=== PATIENT | male | born 1945 | race Caucasian/White ===

== ENCOUNTER 2021-10-03 07:16 | Inpatient (IN) ==
[2021-10-03 08:04] LABS: Basophils # (auto) 0.02 K/uL (0-0.2); Basophils % (auto) 0.1 %; Hematocrit (blood only) 39.6 % (42-52); Hemoglobin 13.6 g/dL (14.0-18.0); Immature Granulocytes # (auto) 0.27 K/uL (0.00-0.02); Immature Granulocytes % (auto) 1.7 %; Lymphocytes # (auto) 1.35 K/uL (1.2-3.4); Lymphocytes % (auto) 8.7 %; Mean Corpuscular Hemoglobin 30.6 pg (25-34); Mean Corpuscular Hgb Conc 34.3 g/dL (32-36); Mean Corpuscular Volume 89.2 fL (80-100); Mean Platelet Volume 11.2 fL (7.4-10.4); Monocytes % (auto) 3.2 %; Neutrophils # (auto) 13.33 K/uL (1.4-6.5); Neutrophils % (auto) 86.3 %; Platelet Count 163 K/uL (130-400); RDW Coefficient of Variation 15.8 % (11.5-14.5); RDW Standard Deviation 51.6 fL (36.4-46.3); Red Blood Count 4.44 M/uL (4.7-6.1); White Blood Count 15.47 K/uL (4.8-10.8)
--- NOTE | 2021-10-03 08:13 | XRay Report ---
XR chest 1V portable HISTORY: 76 years-old Male SEPSIS acute sepsis. Recurrent fall. COMPARISON: Head CT 02/23/2021, chest radiographs 04/18/2018 TECHNIQUE: Portable AP view of the chest FINDINGS: Extensive sclerotic metastatic disease is redemonstrated. No definite acute pathologic fracture ident ified. The cardiomediastinal and hilar silhouettes are within normal limits. Emphysema. No pneumothor ax, pleural effusion, airspace consolidation or overt pulmonary edema. IMPRESSION: 1. Emphysema without acute process. 2. Extensive osteoblastic skeletal metastasis redemonstrated. ACT 112: Negative or not required by law. The above report was generated using voice recognition software. It may contain grammatical, syntax o r spelling errors. Electronically signed by: Mike Issa M.D. 10/03/2021 8:11 AM
[2021-10-03 08:20] LABS: Appearance Urine Clear (Clear); Bacteria Urine Automated Negative (Negative); Bilirubin Urine Negative (Negative); Blood Urine 2+ (Negative); Color Urine Yellow; Epithelial Cell Urine Auto 20-30 /lpf (0-5); Glucose Urine UA Negative (Negative); Ketones Urine Negative (Negative); Leukocyte Esterase Urine Negative (Negative); Nitrite Urine Negative (Negative); Protein Urine 1+ (Negative); Specific Gravity Urine 1.014 (1.000-1.030); Urobilinogen Urine Negative (Negative)
[2021-10-03 08:22] LABS: INR 1.3 (0.9-1.1); Partial Thromboplastin Ratio 0.9; Partial Thromboplastin Time 23.5 Seconds (21.0-31.0); Prothrombin Time 13.2 Seconds (9.0-12.0)
[2021-10-03 09:03] LABS: Alanine Aminotransferase 26 U/L (7-52); Albumin Globulin Ratio 1.4 (0.9-2); Albumin Level 4.3 gm/dl (3.4-5.0); Alkaline Phosphatase 371 U/L (34-104); Anion Gap 12 (3-11); Aspartate Aminotransferase 74 U/L (13-39); BUN Creatinine Ratio 20.4 (10-20); Bilirubin,Total 2.6 mg/dl (0.2-1.0); Blood Urea Nitrogen 49 mg/dl (6-23); Calcium > 18.0 mg/dl (8.5-10.1); Carbon Dioxide 31 mmol/L (21-32); Chloride 98 mmol/L (98-107); Creatinine Clr Calc Pharmacy 26.2 ml/min; Est GFR (African American) 28.9 ml/min; Est GFR (Non-African American) 24.9 ml/min; Glucose 111 mg/dl (70-99(Fasting)); Magnesium 2.1 mg/dl (1.7-2.4); Potassium 3.3 mmol/L (3.5-5.1); Sodium 141 mmol/L (136-145); Total Protein 7.3 gm/dl (6.0-8.3); Troponin I High Sensitivity 65.8 pg/ml (0-20)
[2021-10-03] MEDS ORDERED: SODIUM CHLORIDE 0.9% 1000ML 1,000 ML IV ONE (09:10)
--- NOTE | 2021-10-03 09:51 | CT Scan Report ---
CT head/brain wo con CLINICAL HISTORY: 76 years-old Male with recurrent falls ams. Acutely altered mental status with co nfusion TECHNIQUE: Multiple axial CT images of the head were obtained without contrast. A dose lowering tech nique was utilized adhering to the principles of ALARA. COMPARISON: CT cervical spine of same day. FINDINGS: No acute intracranial hemorrhage, midline shift, intracranial mass, hydrocephalus, territorial ischem ia or abnormal extra-axial collection. Age-related changes. White matter hypodensities suggest chroni c microvascular ischemic disease. The study is motion degraded. Chronic appearing infarcts of the rig ht deal radiata and caudate nucleus. Extensive osteoblastic metastatic disease. No acute calvarial fracture. The paranasal sinuses, masto id air cells, and middle ear cavities are clear. IMPRESSION: 1. No acute intracranial abnormality. 2. Extensive osteoblastic skeletal metastasis. ACT 112: Negative or not required by law. The above report was generated using voice recognition software. It may contain grammatical, syntax o r spelling errors. Electronically signed by: Miek Issa M.D. 10/03/2021 9:49 AM
--- NOTE | 2021-10-03 09:55 | CT Scan Report ---
CT cervical spine wo con CLINICAL HISTORY: 76 years-old Male with recurrent falls ams. Acute neck pain status post fall COMPARISON: CT head of same day, PET CT 02/23/2021 TECHNIQUE: Multiple axial CT images of the cervical spine were obtained without contrast. A dose low ering technique was utilized adhering to the principles of ALARA. FINDINGS: Diffuse osteoblastic skeletal metastasis redemonstrated. Mild to moderate multilevel disc s pace narrowing with moderate spondylitic spurring and mild to moderate facet arthrosis. Moderate C1-C 2 degeneration. No acute fracture, subluxation or endplate erosion. Multilevel neural foraminal narro wing. Levoscoliosis. The cervical soft tissues appear unremarkable. The visualized lung apices appear clear. IMPRESSION: 1. No acute cervical spine fracture or subluxation. 2. Extensive osteoblastic skeletal metastasis redemonstrated. ACT 112: Negative or not required by law. The above report was generated using voice recognition software. It may contain grammatical, syntax o r spelling errors. Electronically signed by: Mike Issa M.D. 10/03/2021 9:52 AM
--- NOTE | 2021-10-03 10:06 | CT Scan Report ---
ABDOMEN AND PELVIS CT WITHOUT CONTRAST CT DOSE: 2196.52 mGy.cm HISTORY: Acute abdominal trauma with prior fall recurrent falls ams TECHNIQUE: Multiaxial CT images of the abdomen and pelvis were performed without contrast. A dose lo wering technique was utilized adhering to the principles of ALARA. COMPARISON STUDY: CT abdomen and pelvis 03/31/2018, PET CT 02/23/2021 FINDINGS: Mild left basilar atelectasis. Limited exam secondary to respiratory motion and upper extremity posit ioning. No pneumatosis or pneumoperitoneum. Coronary artery calcifications are noted along with cardi omegaly and trace pericardial effusion. The unenhanced spleen, moderately atrophic pancreas, gallblad jenn, adrenal glands and liver appear unremarkable. No hydronephrosis. 1.4 cm right-sided ureterocele versus urinary bladder diverticulum. Small fat filled left inguinal hernia. Atherosclerosis of the ao rta without aneurysm. There is no lymphadenopathy identified. Nonspecific mild distal esophageal wall thickening. No bowel obstruction or bowel wall thickening. Ga seous distention of the rectum. Colonic diverticulosis without acute diverticulitis. Moderate fecal r etention. Normal appendix. Unremarkable soft tissues. Extensive multifocal osteoblastic skeletal meta stasis. Lumbar levoscoliosis. No acute pathologic fracture identified. IMPRESSION: 1. No bowel obstruction or bowel wall thickening. Normal appendix. 2. Colonic diverticulosis without acute diverticulitis. 3. Extensive osteoblastic skeletal metastasis. No acute pathologic fracture identified. ACT 112: Negative or not required by law. The above report was generated using voice recognition software. It may contain grammatical, syntax o r spelling errors. Electronically signed by: Mike Issa M.D. 10/03/2021 10:04 AM
[2021-10-03 11:01] LABS: Influenza A virus by PCR Negative (Neg); Influenza B virus by PCR Negative (Neg); RSV by PCR Negative (Neg); SARS CoV2 RNA(COVID-19) InHosp NEGATIVE (Negative)
[2021-10-03] MEDS: SODIUM CHLORIDE 0.9% 1000ML 1,000 ML IV SCH ×2 (11:47→22:30)
[2021-10-03] MEDS ORDERED: CALCITONIN SALMON 400 UNITS/2 ML SQ SCH (12:00)
--- NOTE | 2021-10-03 12:02 | History & Physical Report ---
Date of Service October 03, 2021 Assessment & Plan (1) Hypercalcemia: Plan: Severe hypercalcemia likely secondary to metastatic disease complicated by hypovolemia associated with encephalopathy/confusion/weakness/loss of appetite - Ionized calcium pending - which should guide overall therapy- iCA-2.01 - Will treat with Calcitonin 4units/kg SQ q12 bridge until bisphosphonate effect takes place - ZDA or equivalent bisphosphonate- Renal dosed ZDA 3mg - IVF at 125 ml/hour- HCO3 31- continue with 0.9% Saline infusion - consider changing to Plasmalyte if acidosis/worsening renal function - Phos level now- 5.0 follow likely related to suppression of PTH from other montrell rce - ALkPO4 elevated with bony mets noted - PTH/PTH RP - As this is acute expect PTH to not be elevated- but await PTHRP - Would like to obtain further imaging with Contrast to evaluate for any new m asses- however SANE RN elevated at this time (2) Encephalopathy: Plan: Currently likely related to severe hypercalcemia - CT of the head- 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 - 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- remains compared to PET scan 2020 - Treat Hypercalcemia- Hematology consulted for underlying cancer management and prognostication - Answers words with one word answers, but is able to move all extremities, and reflexes slow but present, no facial droop PERRLA -check brain MRI without contrast (due to RADHA) (3) RADHA (acute kidney injury): Plan: FREDERICK III baseline 1.2-1.5- SANE RN 2.4 with BUN 49- CRCL <30 - replace intravascular volume as above - Hold ARB - avoid further nephrotoxins as able - however further contrasted studies may benefit disease extension/new masses - If renal function does not improve with hydration consider renal ultrasound (4) Elevated troponin: Plan: elevated at 65/69, no chest pain but is difficult to obtain history ECG with TWIs anterior leads changed from previous trend troponin likely myocardial demand ischemia in setting of acute illness but if troponin increases further would obtain ECHO (5) 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 - PSA and urine cytology requested -consult Oncology to see if needs any treatment inpatient given aggressive progressing disease (6) Leukocytosis: Plan: WBC 15 neutrophil predominant- without fevers, UA without bacteria, CXR clear TBili and AST, alk phos elevated but no abd pain-check RUQ US - PCT -.21 - Hold on abx a this time likely component of some hemoconcentration (7) Elevated LFTs: Plan: TBili up to 2.6, AST elevated in the 70s, Alk phos elevated likely due to bony mets Liver and GB appear normal on CT abd/pel without contrast no abd pain or tenderness on exam but is confused and difficult to get good history -check RUQ US -follow LFTs (8) Hypokalemia: Plan: mildly low will not replace given RADHA (9) HTN (hypertension): Plan: Hold ARB (10) HLD (hyperlipidemia): Plan: Continue statin Plan: DVT porph-heparin SQ DIspo-admit to PCU DNR/DNI History of Present Illness Chief Complaint: weakness, confusion Primary Care Provider: Emeterio Cedeno 76 YOM with medical history of: Prostate Cancer (follows with [facility])- on current therapy, CKD, HTN, HLD, back pain with bony metastatic disease. Patient comes to the EMD today for 2 day history of increased weakness, confusion, and decrease in oral intake. Patient is accompanied by his and daughter. They report normally he is pretty well functioning at home, but has had decrease over the past 2 weeks in his overall function and ability to get around even with his cane. reports that he is confused and had little to eat over the past few days, and since he was lying down he has not been drinking. She endorses that he will usually drink 1-2 large cups of water through the day while he is sitting in his chair. In the EMD the patient had routine labs performed to include HScTNI and UA. He had CT scan of his abdomen and pelvis performed without contrast, cervical spine CT and head CT without contrast. CXR performed and ECG. His lab work was notable for elevated WBC, elevated BUN and SANE RN, and severely elevated serum calcium level at >18. His HScTNI was also elevated with ECG without ST elevation or acute changes. Patient will be admitted to PCU telemetry- will send iCA/PHOS level now. Will require IV hydration aggressive and will treat his hypercalcemia with resulting labs, which will include Calcitonin and ZDA/Bisphosphonate that will need to be renally adjusted. COVID/FLU/RSV/: NEGATIVE on admission Allergies Allergy/AdvReac Type Severity Reaction Status Date / Time No Known Allergies Allergy Verified 10/03/21 11:45 Home Medications Medication Instructions Recorded Confirmed Type calcium carbonate 500 mg calcium 500 mg PO QAM 04/17/18 10/03/21 History (1,250 mg) tablet (Calcium 500) abiraterone 250 mg tablet 250 mg PO TID 10/03/21 10/03/21 History ondansetron HCl 8 mg tablet 8 mg PO Q8H PRN 10/03/21 10/03/21 History prednisone 10 mg tablet 10 mg PO DAILY 10/03/21 10/03/21 History rosuvastatin 10 mg tablet 10 mg PO DAILY 10/03/21 10/03/21 History tramadol 50 mg tablet 50 mg PO Q4H PRN 10/03/21 10/03/21 History valsartan 80 mg tablet 80 mg PO DAILY 10/03/21 10/03/21 History Past Med/Surg History Medical History (Updated 10/03/21 @ 15:50 by Fay Patterson MD) RADHA (acute kidney injury) 04/2018- FELT 2/2 OBSTRUCTIVE UROPATHY; IMPROVING S/P MURPHY INSERTION CREATININE WAS 1.98 ON 04/04/18 AT TIME OF [facility] DISCHARGE-- IMPROVED TO 1.5 ON 04/18/18 PAT PREOP LABS Anemia BPH (benign prostatic hyperplasia) Diverticular disease Prostate cancer SUGGESTIVE OF METS PER CT ABD/PELVIS PER 04/2018 DISCHARGE SUMMARY- PATIENT DENIES HISTORY OF PROSTATE CANCER Surgical History History of colonoscopy History of surgery on arm RIGHT UE, MULTIPLE 2/2 TRAUMA Spermatocele S/P SURGICAL REPAIR Family History Mother , age 92 Congestive heart failure Father , age 68 Myocardial infarction Social History Smoking Status: Unknown if ever smoked Cigarettes Per Day: QUIT 2+ MONTHS AGO, HX <1/4 PPD X 30 YEARS; Second Hand Exposure: No; Hx Alcohol Use: Yes Alcohol type: other Hx Substance Use: No Preferred Language: [place] Communication Ability: Unable Visual Impairment: No Limitations Casing Operator Required: No Beliefs That Will Affect Care: None marital status: Current Living Situation: Spouse Current Living Situation Comment: lives in [place] current occupational status: retired 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 Other Information That Helps Us Care for You: No Feels Safe at Home: Yes Assistive Devices: Denture - Lower and Glasses Review of Systems Review of Systems: REVIEW OF SYSTEMS: obtained from family Constitutional: No fever, sweats or chills Eyes: No diplopia, no worsening or blurred vision ENT: normal hearing, no trouble swallowing Respiratory: No cough, sputum, dyspnea at rest or on exertion Cardiovascular: No chest pain, tightness or palpitations Abdomen: (+) loss of appetite, No pain, nausea, vomiting, diarrhea or constipation Musculoskeletal: (+) back pain, calf pain, swelling Neurologic: No weakness, numbness/tingling, or balance problems Psychiatric: No anxiety or depression Skin: No rash or itch Physical Exam Physical Exam: PHYSICAL EXAM: General: awakens to voice, but drifts back to sleep, one word answers yes or no Head: Normocephalic, atraumatic ENT: PERRLA, right eye crusted shut, cleansed and opened with moist gauze- no injectate or tearing. does not follow finger wih eyes, mucous membranes are dry Neuro: AAO x 3, speech clear and appropriate, strength intact bilaterally 5/5, sensation intact and equal all extremities and dermatomes, no pronator drift Chest: equal rise and fall of the chest, no accessory muscle use, no heaves or thrills, Clear to auscultation, on room air, Cardiac: Regular rate and rhythm, telemetry reviewed, skin warm dry, cap refill <3 seconds, peripheral pulses +2 no JVD, no murmur, no edema GI: (+) loss of appetite, NABS x 4 quadrants, soft, nontender to palpation, no rebound, guarding or tenderness : Incontinent, will place Murphy Extremities: Normal inspection, no peripheral edema or erythema, calfs nontender to palpation Skin: no rash or erythema Results & Data Results & Data ([facility]) Vital Signs (Past 12 Hours) Vital Signs Temp Pulse Pulse Resp BP BP Pulse Ox 10/03/21 11:44 89 20 170/72 H 94 10/03/21 10:50 89 22 165/91 H 95 10/03/21 09:48 93 H 24 161/88 H 94 10/03/21 07:37 36.4 C L 94 H 18 146/93 H 95 Laboratory Results Abnormal lab results 10/03/21 10/03/21 10/03/21 Range/Units 07:29 07:44 07:44 WBC 15.47 H (4.8-10.8) K/uL RBC 4.44 L (4.7-6.1) M/uL Hgb 13.6 L (14.0-18.0) g/dL Hct 39.6 L (42-52) % RDW Std Deviation 51.6 H (36.4-46.3) fL RDW Coeff of Anastasia 15.8 H (11.5-14.5) % MPV 11.2 H (7.4-10.4) fL Neut # (Auto) 13.33 H (1.4-6.5) K/uL Immature Gran # (Auto) 0.27 H (0.00-0.02) K/uL PT 13.2 H (9.0-12.0) Seconds INR 1.3 H (0.9-1.1) Potassium (3.5-5.1) mmol/L Anion Gap (3-11) BUN (6-23) mg/dl Creatinine (0.6-1.4) mg/dl BUN/Creatinine Ratio (10-20) Glucose (70-99(Fasting)) mg/dl Calcium (8.5-10.1) mg/dl Total Bilirubin (0.2-1.0) mg/dl AST (13-39) U/L Alkaline Phosphatase (34-104) U/L Troponin I High Sens (0-20) pg/ml Urine Protein 1+ H (Negative) Urine Blood 2+ H (Negative) Urine RBC (Auto) 5-10 H (0-4) /hpf U Epithel Cells (Auto) 20-30 H (0-5) /lpf 10/03/21 Range/Units 07:44 WBC (4.8-10.8) K/uL RBC (4.7-6.1) M/uL Hgb (14.0-18.0) g/dL Hct (42-52) % RDW Std Deviation (36.4-46.3) fL RDW Coeff of Anastasia (11.5-14.5) % MPV (7.4-10.4) fL Neut # (Auto) (1.4-6.5) K/uL Immature Gran # (Auto) (0.00-0.02) K/uL PT (9.0-12.0) Seconds INR (0.9-1.1) Potassium 3.3 L (3.5-5.1) mmol/L Anion Gap 12 H (3-11) BUN 49 H (6-23) mg/dl Creatinine 2.40 H (0.6-1.4) mg/dl BUN/Creatinine Ratio 20.4 H (10-20) Glucose 111 H (70-99(Fasting)) mg/dl Calcium > 18.0 H* (8.5-10.1) mg/dl Total Bilirubin 2.6 H (0.2-1.0) mg/dl AST 74 H (13-39) U/L Alkaline Phosphatase 371 H (34-104) U/L Troponin I High Sens 65.8 H* (0-20) pg/ml Urine Protein (Negative) Urine Blood (Negative) Urine RBC (Auto) (0-4) /hpf U Epithel Cells (Auto) (0-5) /lpf Diagnostic Findings Cervical Spine CT 10/03/21 07:36 CT cervical spine wo con CLINICAL HISTORY: 76 years-old Male with recurrent falls ams. Acute neck pain status post fall COMPARISON: CT head of same day, PET CT 02/23/2021 TECHNIQUE: Multiple axial CT images of the cervical spine were obtained without contrast. A dose lowering technique was utilized adhering to the principles of ALARA. FINDINGS: Diffuse osteoblastic skeletal metastasis redemonstrated. Mild to moderate multilevel disc space narrowing with moderate spondylitic spurring and mild to moderate facet arthrosis. Moderate C1-C2 degeneration. No acute fracture, subluxation or endplate erosion. Multilevel neural foraminal narrowing. Levoscoliosis. The cervical soft tissues appear unremarkable. The visualized lung apices appear clear. IMPRESSION: 1. No acute cervical spine fracture or subluxation. 2. Extensive osteoblastic skeletal metastasis redemonstrated. ACT 112: Negative or not required by law. The above report was generated using voice recognition software. It may contain grammatical, syntax or spelling errors. Electronically signed by: Mike Issa M.D. 10/03/2021 9:52 AM Chest X-Ray 10/03/21 07:36 XR chest 1V portable HISTORY: 76 years-old Male SEPSIS acute sepsis. Recurrent fall. COMPARISON: Head CT 02/23/2021, chest radiographs 04/18/2018 TECHNIQUE: Portable AP view of the chest FINDINGS: Extensive sclerotic metastatic disease is redemonstrated. No definite acute pathologic fracture identified. The cardiomediastinal and hilar silhouettes are within normal limits. Emphysema. No pneumothorax, pleural effusion, airspace consolidation or overt pulmonary edema. IMPRESSION: 1. Emphysema without acute process. 2. Extensive osteoblastic skeletal metastasis redemonstrated. ACT 112: Negative or not required by law. The above report was generated using voice recognition software. It may contain grammatical, syntax or spelling error Electronically signed by: Mike Issa M.D. 10/03/2021 8:[address] 10/03/21 07:36 CT head/brain wo con CLINICAL HISTORY: 76 years-old Male with recurrent falls ams. Acutely altered mental status with confusion TECHNIQUE: Multiple axial CT images of the head were obtained without contrast. A dose lowering technique was utilized adhering to the principles of ALARA. COMPARISON: CT cervical spine of same day. FINDINGS: No acute intracranial hemorrhage, midline shift, intracranial mass, hydrocephalus, territorial ischemia or abnormal extra-axial collection. Age- related changes. White matter hypodensities suggest chronic microvascular ischemic disease. The study is motion degraded. Chronic appearing infarcts of the right deal radiata and caudate nucleus. Extensive osteoblastic metastatic disease. No acute calvarial fracture. The paranasal sinuses, mastoid air cells, and middle ear cavities are clear. IMPRESSION: 1. No acute intracranial abnormality. 2. Extensive osteoblastic skeletal metastasis. ACT 112: Negative or not required by law. The above report was generated using voice recognition software. It may contain grammatical, syntax or spelling errors. Electronically signed by: Mike Issa M.D. 10/03/2021 9:49 AM Abdomen/Pelvis CT 10/03/21 09:[address] WITHOUT CONTRAST CT DOSE: 2196.52 mGy.cm HISTORY: Acute abdominal trauma with prior fall recurrent falls ams TECHNIQUE: Multiaxial CT images of the abdomen and pelvis were performed without contrast. A dose lowering technique was utilized adhering to the principles of ALARA. COMPARISON STUDY: CT abdomen and pelvis 03/31/2018, PET CT 02/23/2021 FINDINGS: Mild left basilar atelectasis. Limited exam secondary to respiratory motion and upper extremity positioning. No pneumatosis or pneumoperitoneum. Coronary artery calcifications are noted along with cardiomegaly and trace pericardial effusion. The unenhanced spleen, moderately atrophic pancreas, gallbladder, adrenal glands and liver appear unremarkable. No hydronephrosis. 1.4 cm right-sided ureterocele versus urinary bladder diverticulum. Small fat filled left inguinal hernia. Atherosclerosis of the aorta without aneurysm. There is no lymphadenopathy identified. Nonspecific mild distal esophageal wall thickening. No bowel obstruction or bowel wall thickening. Gaseous distention of the rectum. Colonic diverticulosis without acute diverticulitis. Moderate fecal retention. Normal appendix. Unremarkable soft tissues. Extensive multifocal osteoblastic skeletal metastasis. Lumbar levoscoliosis. No acute pathologic fracture identified. IMPRESSION: 1. No bowel obstruction or bowel wall thickening. Normal appendix. 2. Colonic diverticulosis without acute diverticulitis. 3. Extensive osteoblastic skeletal metastasis. No acute pathologic fracture identified. ACT 112: Negative or not required by law. The above report was generated using voice recognition software. It may contain grammatical, syntax or spelling errors. Electronically signed by: Mike Issa M.D. 10/03/2021 10:04 AM Medications Administered Home Medications calcium carbonate 500 mg calcium (1,250 mg) tablet (Calcium 500) 500 mg PO QAM 04/17/18 [History Confirmed 06/30/20] abiraterone 250 mg tablet 250 mg PO TID 10/03/21 [History Confirmed 10/03/21] ondansetron HCl 8 mg tablet 8 mg PO Q8H PRN 10/03/21 [History Confirmed 10/03/21] prednisone 10 mg tablet 10 mg PO DAILY 10/03/21 [History Confirmed 10/03/21] rosuvastatin 10 mg tablet 10 mg PO DAILY 10/03/21 [History Confirmed 10/03/21] tramadol 50 mg tablet 50 mg PO Q4H PRN 10/03/21 [History Confirmed 10/03/21] valsartan 80 mg tablet 80 mg PO DAILY 10/03/21 [History Confirmed 10/03/21] Active Medications Calcitonin Thornton (Calcitonin Thornton 400 Units/2 Ml) 300 units SQ Q12H DEMETRIS Stop: 10/04/21 00:01 Sodium Chloride (Nss 1000ml) 1,000 mls @ 125 mls/hr IV .Q8H DEMETRIS Stop: 11/02/21 10:59 Last Admin: 10/03/21 11:47 Dose: 125 mls/hr Documented by: Sodium Chloride (Nss 1000ml) 1,000 mls @ 125 mls/hr IV .Q8H DEMETRIS Stop: 11/02/21 10:59 Last Admin: 10/03/21 11:47 Dose: 125 mls/hr Documented by: [id number] Discontinued Medications Sodium Chloride (Nss 1000ml) 1,000 mls @ 999 mls/hr IV .Q1H1M ONE Stop: 10/03/21 10:10 Last Infusion: 10/03/21 10:50 Dose: 0 mls/hr Documented by: [id number] Admin: 10/03/21 09:52 Dose: 999 mls/hr Documented by: [id number] ECG Additional Comments: Normal sinus rhythm Left axis deviation Low voltage QRS Inferior infarct , age undetermined Cannot rule out Anterior infarct , age undetermined Abnormal ECG No previous ECGs available Code Status & VTE Plan Code Status CODE: DNR/DNI VTE: SCDS, Heparin 5000 units sub q q12 VTE Prophylaxis Plan VTE Prophylaxis will be ordered: Yes Supervising Physician Co-Signing Physician Notes ACCOUNTS RECEIVABLE SUPERVISOR Supervision Note: I personally saw and examined the patient. I verified all [place] points and agree with THA Marie with the following exceptions and/or additions: Changes made to A/P above 76 yo male who p/w progressive weakness, confusion, poor appetite. FOund ot have severe hypercalcemia with Ca++>18 and RADHA, elevated troponin. With diffuse met bony disease on imaging from his known met prostate CA History and ROS reviewed as above O- Vitals reviewed Gen: [confused, awake, sometimes follows some commands but not speaking much, NAD] HEENT: [anicteric sclerae, EOMI, PERRL] CV: [RRR no mgr nl S1S2] Pulm: [CTAB no wcr] Abd: [+BS soft NT ND no masses or hernias] Ext: [no edema] Skin: [no rashes, warm/dry] Neuro: [moving all extremities, confused] Labs, rads, ECG reviewed A/P-76 yo male with severe hypercalcemia, encephalopathy, elevated troponin and elevated LFTs, RADHA in setting of metastatic prostate CA with bony mets. 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
--- NOTE | 2021-10-03 12:18 | Emergency Department Note ---
History of Present Illness General Chief complaint: Confusion Time Seen by Provider: 10/03/21 07:27 History of Present Illness Provider complaint: Confusion recurrent falls 76-year-old male with history of prostate cancer presents emergency department for confusion and recurrent falls. EMS reports the patient is less been reporting abdominal pain. Home Medications Medication Instructions Recorded Confirmed Type calcium carbonate 500 mg calcium 500 mg PO QAM 04/17/18 10/03/21 History (1,250 mg) tablet (Calcium 500) abiraterone 250 mg tablet 250 mg PO TID 10/03/21 10/03/21 History ondansetron HCl 8 mg tablet 8 mg PO Q8H PRN 10/03/21 10/03/21 History prednisone 10 mg tablet 10 mg PO DAILY 10/03/21 10/03/21 History rosuvastatin 10 mg tablet 10 mg PO DAILY 10/03/21 10/03/21 History tramadol 50 mg tablet 50 mg PO Q4H PRN 10/03/21 10/03/21 History valsartan 80 mg tablet 80 mg PO DAILY 10/03/21 10/03/21 History Allergies Allergy/AdvReac Type Severity Reaction Status Date / Time No Known Allergies Allergy Verified 10/03/21 11:45 Past Med/Surg History Medical History (Updated 10/03/21 @ 14:22 by Sukhwinder Qiu) RADHA (acute kidney injury) 04/2018- FELT 2/2 OBSTRUCTIVE UROPATHY; IMPROVING S/P MURPHY INSERTION CREATININE WAS 1.98 ON 04/04/18 AT TIME OF [facility] DISCHARGE-- IMPROVED TO 1.5 ON 04/18/18 PAT PREOP LABS Anemia BPH (benign prostatic hyperplasia) Diverticular disease Prostate cancer SUGGESTIVE OF METS PER CT ABD/PELVIS PER 04/2018 DISCHARGE SUMMARY- PATIENT DENIES HISTORY OF PROSTATE CANCER Surgical History History of colonoscopy History of surgery on arm RIGHT UE, MULTIPLE 2/2 TRAUMA Spermatocele S/P SURGICAL REPAIR Family History Mother , age 92 Congestive heart failure Father , age 68 Myocardial infarction Social History Smoking Status: Unknown if ever smoked Cigarettes Per Day: QUIT 2+ MONTHS AGO, HX <1/4 PPD X 30 YEARS; Second Hand Exposure: No; Hx Alcohol Use: Yes Alcohol type: other Hx Substance Use: No Preferred Language: Senegalese Communication Ability: Unable Visual Impairment: No Limitations Artist'S Model Required: No Beliefs That Will Affect Care: None marital status: Current Living Situation: Spouse Current Living Situation Comment: lives in [place] current occupational status: retired 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 Other Information That Helps Us Care for You: No Feels Safe at Home: Yes Assistive Devices: Denture - Lower and Glasses Review of Systems Unobtainable due to cognitive status Physical Exam Vital Signs Vital Signs - 24 hr 10/03/21 07:37 10/03/21 09:48 10/03/21 10:50 Temperature 36.4 C L Temperature Source Oral Pulse Rate 94 H Pulse Rate [Finger] 93 H 89 Respiratory Rate 18 24 22 Blood Pressure 146/93 H Blood Pressure [Left Arm] 161/88 H 165/91 H Blood Pressure Mean 110 Blood Pressure Mean [Left Arm] 112 115 Pulse Oximetry 95 94 95 Oxygen Delivery Method Room Air Room Air Room Air Sepsis Recent Fever Within 48 Hours No Sepsis New/Unexplained Change in Mental Status No Sepsis Action Taken by Nursing No Action Required 10/03/21 11:44 Temperature Temperature Source Pulse Rate Pulse Rate [Finger] 89 Respiratory Rate 20 Blood Pressure Blood Pressure [Left Arm] 170/72 H Blood Pressure Mean Blood Pressure Mean [Left Arm] 104 Pulse Oximetry 94 Oxygen Delivery Method Room Air Sepsis Recent Fever Within 48 Hours Sepsis New/Unexplained Change in Mental Status Sepsis Action Taken by Nursing Physical Exam HENT: Exam performed. - Head: Normocephalic and atraumatic. - Right Ear: External ear normal. No mastoid tenderness. - Left Ear: External ear normal. No mastoid tenderness. - Mouth/Throat: The oropharynx is clear and moist. No trismus in the jaw. No dental abscesses or uvula swelling. No oropharyngeal exudate or tonsillar abscesses. EYES: Conjunctivae and EOM are normal. Pupils are equal, round, and reactive to light. Right eye exhibits no discharge. Left eye exhibits no discharge. No scleral icterus. NECK: Normal range of motion. Neck supple. No JVD present. CV: Normal rate, regular rhythm, normal heart sounds and intact distal pulses. There is no peripheral edema. Palpable radial pulses bue. PULM/CHEST: Effort normal and breath sounds normal. No respiratory distress. No stridor. He has no wheezes. He has no rales. - Chest Wall: He exhibits no tenderness. ABD: The abdomen is soft. LYMPH: No cervical adenopathy. NEURO: GCS eye subscore is 3. GCS verbal subscore is 2. GCS motor subscore is 4. Course Course 726: The patient was evaluated in room B9. A complete history and physical exam was performed Cardiac monitoring: An order was placed for continuous cardiac monitoring. The monitor shows a rate of 90 with sinus rhythm 1054:Vital signs stable. Labs show leukocytosis of 15.4. Hemoglobin 13.6. Potassium 3.3. Creatinine 2.4. Calcium creatinine 18. Troponin 65.8. Alkaline phosphatase 371. CT imaging shows no pathological fractures but does show diffuse metastasis to the skeletal structures. I did discuss results with the family members who are at bedside now. They state the patient receives his oncology care from this facility Dr. Desir. I did discuss case with hematology oncology on-call Dr. Roberts. He states to continue with IV hydration at this time and he will review the patient's chart for any further recommendations. Patient will be admitted to the [facility] hospitalist team. 1143: Dr. Roberts oncology called and recommends calcitonin 4 units/kg every 12 hours for 24 to 48 hours depending on the patient's calcium results. He states he will follow-up with the patient they are hospitalized. He also recommends Dinosumab 120 mg subcutaneously every 8 hours. I spoke with pharmacy and unfor tunately Dinosumab is not available at this facility. Dr. Roberts aware and ok with IVF and calcitonin. 1217: Vital signs stable. [facility] aware that there is also no calcitonin available at this facility. ED pharmacist has calls out to other hospitals/facilities in the area to receive calcitonin via direct care staffer. She did contact [facility] who is trying to arrange delivery via direct care staffer today for the calcitonin. Dr. Roberts and [facility] Hospitalist MONTY Bedoya are aware. 1233: [facility] ED pharmacist was able to secure direct care staffer to go and pickle pumper calcitonin from [facility]. Administered Medications Sodium Chloride (Nss 1000ml) 1,000 mls @ 125 mls/hr IV .Q8H DEMETRIS Stop: 11/02/21 10:59 Last Admin: 10/03/21 11:47 Dose: 125 mls/hr Documented by: [id number] Discontinued Medications Sodium Chloride (Nss 1000ml) 1,000 mls @ 999 mls/hr IV .Q1H1M ONE Stop: 10/03/21 10:10 Last Infusion: 10/03/21 10:50 Dose: 0 mls/hr Documented by: [id number] Admin: 10/03/21 09:52 Dose: 999 mls/hr Documented by: [id number] Medical Decision Making Laboratory Data Result diagrams: 10/03/21 07:44 10/03/21 07:44 Lab Results 10/03/21 10/03/21 10/03/21 Range/Units 07:29 07:44 07:44 WBC 15.47 H (4.8-10.8) K/uL RBC 4.44 L (4.7-6.1) M/uL Hgb 13.6 L (14.0-18.0) g/dL Hct 39.6 L (42-52) % MCV 89.2 (80-100) fL MCH 30.6 (25-34) pg MCHC 34.3 (32-36) g/dL RDW Std Deviation 51.6 H (36.4-46.3) fL RDW Coeff of Anastasia 15.8 H (11.5-14.5) % Plt Count 163 (130-400) K/uL MPV 11.2 H (7.4-10.4) fL Immature Gran % (Auto) 1.7 % Neut % (Auto) 86.3 % Lymph % (Auto) 8.7 % [place] % (Auto) 3.2 % Eos % (Auto) 0.0 % Baso % (Auto) 0.1 % Neut # (Auto) 13.33 H (1.4-6.5) K/uL Lymph # (Auto) 1.35 (1.2-3.4) K/uL [place] # (Auto) 0.50 (0.11-0.59) K/uL Eos # (Auto) 0.00 (0-0.5) K/uL Baso # (Auto) 0.02 (0-0.2) K/uL Immature Gran # (Auto) 0.27 H (0.00-0.02) K/uL PT (9.0-12.0) Seconds INR (0.9-1.1) APTT (21.0-31.0) Seconds PTT Ratio Sodium (136-145) mmol/L Potassium (3.5-5.1) mmol/L Chloride (98-107) mmol/L Carbon Dioxide (21-32) mmol/L Anion Gap (3-11) BUN (6-23) mg/dl Creatinine (0.6-1.4) mg/dl Est Cr Clr Drug Dosing ml/min Est GFR ( Amer) ml/min Est GFR (Non-Af Amer) ml/min BUN/Creatinine Ratio (10-20) Glucose (70-99(Fasting)) mg/dl Lactate (0.4-2.0) mmol/L Calcium (8.5-10.1) mg/dl Magnesium (1.7-2.4) mg/dl Total Bilirubin (0.2-1.0) mg/dl AST (13-39) U/L ALT (7-52) U/L Alkaline Phosphatase (34-104) U/L Troponin I High Sens (0-20) pg/ml Total Protein (6.0-8.3) gm/dl Albumin (3.4-5.0) gm/dl Globulin (2.5-4.0) gm/dl Albumin/Globulin Ratio (0.9-2) Prostate Specific Ag (0-4) ng/ml Procalcitonin 0.21 (0-0.5) ng/ml PTH Intact (12.0-88.0) pg/ml Urine Color Yellow Urine Appearance Clear (Clear) Urine pH 5.0 (4.5-7.5) Ur Specific [place] 1.014 (1.000-1.030) Urine Protein 1+ H (Negative) Urine Glucose (UA) Negative (Negative) Urine Ketones Negative (Negative) Urine Blood 2+ H (Negative) Urine Nitrite Negative (Negative) Urine Bilirubin Negative (Negative) Urine Urobilinogen Negative (Negative) Ur Leukocyte Esterase Negative (Negative) Urine WBC (Auto) 1-5 (0-5) /hpf Urine RBC (Auto) 5-10 H (0-4) /hpf U Hyaline Cast (Auto) 1-5 (0-5) /lpf U Epithel Cells (Auto) 20-30 H (0-5) /lpf Urine Bacteria (Auto) Negative (Negative) SARS-CoV-2 (PCR) (Negative) Influenza Type A (PCR) (Neg) Influenza Type B (PCR) (Neg) RSV (RT-PCR) (Neg) 10/03/21 10/03/21 10/03/21 Range/Units 07:44 07:44 07:44 WBC (4.8-10.8) K/uL RBC (4.7-6.1) M/uL Hgb (14.0-18.0) g/dL Hct (42-52) % MCV (80-100) fL MCH (25-34) pg MCHC (32-36) g/dL RDW Std Deviation (36.4-46.3) fL RDW Coeff of Anastasia (11.5-14.5) % Plt Count (130-400) K/uL MPV (7.4-10.4) fL Immature Gran % (Auto) % Neut % (Auto) % Lymph % (Auto) % [place] % (Auto) % Eos % (Auto) % Baso % (Auto) % Neut # (Auto) (1.4-6.5) K/uL Lymph # (Auto) (1.2-3.4) K/uL [place] # (Auto) (0.11-0.59) K/uL Eos # (Auto) (0-0.5) K/uL Baso # (Auto) (0-0.2) K/uL Immature Gran # (Auto) (0.00-0.02) K/uL PT 13.2 H (9.0-12.0) Seconds INR 1.3 H (0.9-1.1) APTT 23.5 (21.0-31.0) Seconds PTT Ratio 0.9 Sodium 141 (136-145) mmol/L Potassium 3.3 L (3.5-5.1) mmol/L Chloride 98 (98-107) mmol/L Carbon Dioxide 31 (21-32) mmol/L Anion Gap 12 H (3-11) BUN 49 H (6-23) mg/dl Creatinine 2.40 H (0.6-1.4) mg/dl Est Cr Clr Drug Dosing 26.2 ml/min Est GFR ( Amer) 28.9 ml/min Est GFR (Non-Af Amer) 24.9 ml/min BUN/Creatinine Ratio 20.4 H (10-20) Glucose 111 H (70-99(Fasting)) mg/dl Lactate (0.4-2.0) mmol/L Calcium > 18.0 H* (8.5-10.1) mg/dl Magnesium 2.1 (1.7-2.4) mg/dl Total Bilirubin 2.6 H (0.2-1.0) mg/dl AST 74 H (13-39) U/L ALT 26 (7-52) U/L Alkaline Phosphatase 371 H (34-104) U/L Troponin I High Sens 65.8 H* (0-20) pg/ml Total Protein 7.3 (6.0-8.3) gm/dl Albumin 4.3 (3.4-5.0) gm/dl Globulin 3.0 (2.5-4.0) gm/dl Albumin/Globulin Ratio 1.4 (0.9-2) Prostate Specific Ag > 1420.000 H (0-4) ng/ml Procalcitonin (0-0.5) ng/ml PTH Intact (12.0-88.0) pg/ml Urine Color Urine Appearance (Clear) Urine pH (4.5-7.5) Ur Specific [place] (1.000-1.030) Urine Protein (Negative) Urine Glucose (UA) (Negative) Urine Ketones (Negative) Urine Blood (Negative) Urine Nitrite (Negative) Urine Bilirubin (Negative) Urine Urobilinogen (Negative) Ur Leukocyte Esterase (Negative) Urine WBC (Auto) (0-5) /hpf Urine RBC (Auto) (0-4) /hpf U Hyaline Cast (Auto) (0-5) /lpf U Epithel Cells (Auto) (0-5) /lpf Urine Bacteria (Auto) (Negative) SARS-CoV-2 (PCR) (Negative) Influenza Type A (PCR) (Neg) Influenza Type B (PCR) (Neg) RSV (RT-PCR) (Neg) 10/03/21 10/03/21 10/03/21 Range/Units 08:49 08:49 09:50 WBC (4.8-10.8) K/uL RBC (4.7-6.1) M/uL Hgb (14.0-18.0) g/dL Hct (42-52) % MCV (80-100) fL MCH (25-34) pg MCHC (32-36) g/dL RDW Std Deviation (36.4-46.3) fL RDW Coeff of Anastasia (11.5-14.5) % Plt Count (130-400) K/uL MPV (7.4-10.4) fL Immature Gran % (Auto) % Neut % (Auto) % Lymph % (Auto) % [place] % (Auto) % Eos % (Auto) % Baso % (Auto) % Neut # (Auto) (1.4-6.5) K/uL Lymph # (Auto) (1.2-3.4) K/uL [place] # (Auto) (0.11-0.59) K/uL Eos # (Auto) (0-0.5) K/uL Baso # (Auto) (0-0.2) K/uL Immature Gran # (Auto) (0.00-0.02) K/uL PT (9.0-12.0) Seconds INR (0.9-1.1) APTT (21.0-31.0) Seconds PTT Ratio Sodium (136-145) mmol/L Potassium (3.5-5.1) mmol/L Chloride (98-107) mmol/L Carbon Dioxide (21-32) mmol/L Anion Gap (3-11) BUN (6-23) mg/dl Creatinine (0.6-1.4) mg/dl Est Cr Clr Drug Dosing ml/min Est GFR ( Amer) ml/min Est GFR (Non-Af Amer) ml/min BUN/Creatinine Ratio (10-20) Glucose (70-99(Fasting)) mg/dl Lactate 1.3 (0.4-2.0) mmol/L Calcium (8.5-10.1) mg/dl Magnesium (1.7-2.4) mg/dl Total Bilirubin (0.2-1.0) mg/dl AST (13-39) U/L ALT (7-52) U/L Alkaline Phosphatase (34-104) U/L Troponin I High Sens (0-20) pg/ml Total Protein (6.0-8.3) gm/dl Albumin (3.4-5.0) gm/dl Globulin (2.5-4.0) gm/dl Albumin/Globulin Ratio (0.9-2) Prostate Specific Ag (0-4) ng/ml Procalcitonin (0-0.5) ng/ml PTH Intact 14.3 (12.0-88.0) pg/ml Urine Color Urine Appearance (Clear) Urine pH (4.5-7.5) Ur Specific [place] (1.000-1.030) Urine Protein (Negative) Urine Glucose (UA) (Negative) Urine Ketones (Negative) Urine Blood (Negative) Urine Nitrite (Negative) Urine Bilirubin (Negative) Urine Urobilinogen (Negative) Ur Leukocyte Esterase (Negative) Urine WBC (Auto) (0-5) /hpf Urine RBC (Auto) (0-4) /hpf U Hyaline Cast (Auto) (0-5) /lpf U Epithel Cells (Auto) (0-5) /lpf Urine Bacteria (Auto) (Negative) SARS-CoV-2 (PCR) NEGATIVE (Negative) Influenza Type A (PCR) Negative (Neg) Influenza Type B (PCR) Negative (Neg) RSV (RT-PCR) Negative (Neg) Imaging Data Radiologist's Impression: Cervical Spine CT 10/03/21 07:36 CT cervical spine wo con CLINICAL HISTORY: 76 years-old Male with recurrent falls ams. Acute neck pain status post fall COMPARISON: CT head of same day, PET CT 02/23/2021 TECHNIQUE: Multiple axial CT images of the cervical spine were obtained without contrast. A dose lowering technique was utilized adhering to the principles of ALARA. FINDINGS: Diffuse osteoblastic skeletal metastasis redemonstrated. Mild to moderate multilevel disc space narrowing with moderate spondylitic spurring and mild to moderate facet arthrosis. Moderate C1-C2 degeneration. No acute fracture, subluxation or endplate erosion. Multilevel neural foraminal narrowing. Levoscoliosis. The cervical soft tissues appear unremarkable. The visualized lung apices appear clear. IMPRESSION: 1. No acute cervical spine fracture or subluxation. 2. Extensive osteoblastic skeletal metastasis redemonstrated. ACT 112: Negative or not required by law. The above report was generated using voice recognition software. It may contain grammatical, syntax or spelling errors. Electronically signed by: Mike Issa M.D. 10/03/2021 9:52 AM Chest X-Ray 10/03/21 07:36 XR chest 1V portable HISTORY: 76 years-old Male SEPSIS acute sepsis. Recurrent fall. COMPARISON: Head CT 02/23/2021, chest radiographs 04/18/2018 TECHNIQUE: Portable AP view of the chest FINDINGS: Extensive sclerotic metastatic disease is redemonstrated. No definite acute pathologic fracture identified. The cardiomediastinal and hilar silhouettes are within normal limits. Emphysema. No pneumothorax, pleural effusion, airspace consolidation or overt pulmonary edema. IMPRESSION: 1. Emphysema without acute process. 2. Extensive osteoblastic skeletal metastasis redemonstrated. ACT 112: Negative or not required by law. The above report was generated using voice recognition software. It may contain grammatical, syntax or spelling errors. Electronically signed by: Mike Issa M.D. 10/03/2021 8:[address] 10/03/21 07:36 CT head/brain wo con CLINICAL HISTORY: 76 years-old Male with recurrent falls ams. Acutely altered mental status with confusion TECHNIQUE: Multiple axial CT images of the head were obtained without contrast. A dose lowering technique was utilized adhering to the principles of ALARA. COMPARISON: CT cervical spine of same day. FINDINGS: No acute intracranial hemorrhage, midline shift, intracranial mass, hydrocephalus, territorial ischemia or abnormal extra-axial collection. Age- related changes. White matter hypodensities suggest chronic microvascular ischemic disease. The study is motion degraded. Chronic appearing infarcts of the right deal radiata and caudate nucleus. Extensive osteoblastic metastatic disease. No acute calvarial fracture. The paranasal sinuses, mastoid air cells, and middle ear cavities are clear. IMPRESSION: 1. No acute intracranial abnormality. 2. Extensive osteoblastic skeletal metastasis. ACT 112: Negative or not required by law. The above report was generated using voice recognition software. It may contain grammatical, syntax or spelling errors. Electronically signed by: Mike Issa M.D. 10/03/2021 9:49 AM Abdomen/Pelvis CT 10/03/21 09:[address] WITHOUT CONTRAST CT DOSE: 2196.52 mGy.cm HISTORY: Acute abdominal trauma with prior fall recurrent falls ams TECHNIQUE: Multiaxial CT images of the abdomen and pelvis were performed without contrast. A dose lowering technique was utilized adhering to the principles of ALARA. COMPARISON STUDY: CT abdomen and pelvis 03/31/2018, PET CT 02/23/2021 FINDINGS: Mild left basilar atelectasis. Limited exam secondary to respiratory motion and upper extremity positioning. No pneumatosis or pneumoperitoneum. Coronary artery calcifications are noted along with cardiomegaly and trace pericardial effusion. The unenhanced spleen, moderately atrophic pancreas, gallbladder, adrenal glands and liver appear unremarkable. No hydronephrosis. 1.4 cm right-sided ureterocele versus urinary bladder diverticulum. Small fat filled left inguinal hernia. Atherosclerosis of the aorta without aneurysm. There is no lymphadenopathy identified. Nonspecific mild distal esophageal wall thickening. No bowel obstruction or bowel wall thickening. Gaseous distention of the rectum. Colonic diverticulosis without acute diverticulitis. Moderate fecal retention. Normal appendix. Unremarkable soft tissues. Extensive multifocal osteoblastic skeletal metastasis. Lumbar levoscoliosis. No acute pathologic fracture identified. IMPRESSION: 1. No bowel obstruction or bowel wall thickening. Normal appendix. 2. Colonic diverticulosis without acute diverticulitis. 3. Extensive osteoblastic skeletal metastasis. No acute pathologic fracture identified. ACT 112: Negative or not required by law. The above report was generated using voice recognition software. It may contain grammatical, syntax or spelling errors. Electronically signed by: Mike Issa M.D. 10/03/2021 10:04 AM ECG Data Indication: + weakness Rate (beats per minute): 89 Rhythm: + normal sinus ECG Intervals/blocks: + Normal QRS, + Normal MO and + Normal QT-c ECG ST segments: + Normal ST segments MDM Narrative 0727: The patient was evaluated in room B9. A complete history and physical exam was performed Cardiac monitoring: An order was placed for continuous cardiac monitoring. The monitor shows a rate of 90 with sinus rhythm 1054:Vital signs stable. Labs show leukocytosis of 15.4. Hemoglobin 13.6. Potassium 3.3. Creatinine 2.4. Calcium creatinine 18. Troponin 65.8. Alkali ne phosphatase 371. CT imaging shows no pathological fractures but does show diffuse metastasis to the skeletal structures. I did discuss results with the family members who are at bedside now. They state the patient receives his oncology care from this facility Dr. Desir. I did discuss case with hematology oncology on-call Dr. Roberts. He states to continue with IV hydration at this time and he will review the patient's chart for any further recommendations. Patient will be admitted to the [facility] hospitalist team. 1143: Dr. Roberts oncology called and recommends calcitonin 4 units/kg every 12 hours for 24 to 48 hours depending on the patient's calcium results. He states he will follow-up with the patient they are hospitalized. He also recommends Dinosumab 120 mg subcutaneously every 8 hours. I spoke with pharmacy and unfortunately Dinosumab is not available at this facility. Dr. Roberts aware and ok with IVF and calcitonin. 1217: Vital signs stable. [facility] aware that there is also no calcitonin available at this facility. ED pharmacist has calls out to other hospitals/facilities in the area to receive calcitonin via direct care staffer. She did contact [facility] who is trying to arrange delivery via direct care staffer today for the calcitonin. Dr. Roberts and [facility] [facility] Hospitalist MONTY Bedoya are aware. 1233: [place] pharmacist was able to secure direct care staffer to go and pickle pumper calcitonin from [facility]. Impression & Plan Hypercalcemia, RADHA (acute kidney injury) Discharge Plan Visit Data Chief Complaint: Confusion ED Provider: Sukhwinder Qiu Discharge Problem: Hypercalcemia, RADHA (acute kidney injury) Patient Disposition: Admitted As Inpatient Discharge Instructions Interventions: ED Discharge Assessment Last Done: 10/03/21 12:22
[2021-10-03] MEDS ORDERED: ONDANSETRON INJ 2 MG/ML 2 ML VIAL IV PRN (12:49)
[2021-10-03 13:01] LABS: C Reactive Protein 1.57 mg/dl (0-0.5)
[2021-10-03 13:05] LABS: Troponin I High Sensitivity 69.5 pg/ml (0-20)
[2021-10-03] MEDS ORDERED: SODIUM CHLORIDE 0.9% IV ONE (13:30)
[2021-10-03] MEDS ORDERED: ZOLEDRONIC ACID IV ONE (13:30)
[2021-10-03 14:01] LABS: Creatinine Urine Random 84.9 mg/dl
[2021-10-03] MEDS: CALCITONIN SALMON SQ SCH (14:36)
[2021-10-03] MEDS ORDERED: SODIUM CHLORIDE 0.9% 1000ML 500 ML IV ONE (14:55)
--- NOTE | 2021-10-03 17:06 | Magnetic Resonance Report ---
MR brain wo con HISTORY: 76 years-old Male eval for CVA acute weakness with strokelike symptoms. History of prostate cancer COMPARISON: Head CT of same day, PET CT 02/23/2021 TECHNIQUE: Multiplanar multisequence MRI the brain was obtained without the use of IV contrast. FINDINGS: There is no restricted diffusion to suggest acute or subacute infarct. Motion degraded exam. Midline structures appear unremarkable. Degenerative changes of the imaged cervical spine. Multifocal areas o f marrow replacement redemonstrated. Age-related involutional changes. Extensive T2/FLAIR hyperintens e foci are noted throughout the white matter. Chronic infarct of the right deal radiata and adjacen t basal ganglia. The cerebral venous sinuses and major arterial flow voids appear patent. Soft tissues and orbits are unremarkable. Mastoid air cells are clear. Mild mucosal thickening of the paranasal sinuses. IMPRESSION: 1. No acute intracranial abnormality. No acute or subacute infarct. 2. Involutional changes with chronic microvascular ischemic disease. 3. Extensive osteoblastic skeletal metastasis. ACT 112: Negative or not required by law. The above report was generated using voice recognition software. It may contain grammatical, syntax o r spelling errors. Electronically signed by: Mike Issa M.D. 10/03/2021 5:03 PM
--- NOTE | 2021-10-03 18:33 | Ultrasound Report ---
US gallbladder HISTORY: 76 years-old Male elevated LFTs,altered mental status elevated LFTs COMPARISON: CT abdomen and pelvis of same day TECHNIQUE: Multiple real-time sonographic images of the right upper quadrant abdomen were obtained as sessing grayscale appearance and color flow FINDINGS: Limited study secondary to patient lack of cooperation throughout the exam. The visualized pancreas is unremarkable. Mildly increased echogenicity of the portal triads.. Biliary sludge with mild cholelithiasis. There is no associated gallbladder wall thickening or pericholecyst ic fluid negative sonographic Chen's sign. Normal common bile duct, 4 mm. The imaged right kidney is unremarkable without hydronephrosis. IMPRESSION: 1. Biliary sludge with mild cholelithiasis. No sonographic evidence of acute cholecystitis. 2. No biliary ductal dilation. 3. Mildly increased echogenicity of the portal triads. Correlate with LFTs to exclude hepatitis. ACT 112: Negative or not required by law. The above report was generated using voice recognition software. It may contain grammatical, syntax o r spelling errors. Electronically signed by: Mike Issa M.D. 10/03/2021 6:31 PM
--- NOTE | 2021-10-03 18:34 | Ultrasound Report ---
US renal/blad retro comp HISTORY: 76 years-old Male acute kidney injury acute kidney injury COMPARISON: CT abdomen and pelvis of same day TECHNIQUE: Multiple real-time sonographic images of the kidneys and urinary bladder were obtained ass essing grayscale appearance and color flow FINDINGS: The right kidney measures 7.8 x 4.0 x 3.7 cm. The left kidney measures 6.7 x 3.9 x 3.3 cm. No renal c alculi or hydronephrosis. No solid renal mass lesions. The study is limited secondary to patient lack of cooperation. Decompressed urinary bladder with Dye catheter. IMPRESSION: No renal calculi or hydronephrosis. ACT 112: Negative or not required by law. The above report was generated using voice recognition software. It may contain grammatical, syntax o r spelling errors. Electronically signed by: Mike Issa M.D. 10/03/2021 6:32 PM
[2021-10-04] MEDS: CALCITONIN SALMON SQ SCH (01:57)
[2021-10-04] MEDS ORDERED: Nursing to Pharmacy Communication SCH (04:15)
[2021-10-04 06:54] LABS: Basophils # (auto) 0.02 K/uL (0-0.2); Basophils % (auto) 0.3 %; Hematocrit (blood only) 40.4 % (42-52); Hemoglobin 13.6 g/dL (14.0-18.0); Immature Granulocytes # (auto) 0.12 K/uL (0.00-0.02); Immature Granulocytes % (auto) 1.5 %; Lymphocytes # (auto) 0.96 K/uL (1.2-3.4); Lymphocytes % (auto) 12.1 %; Mean Corpuscular Hemoglobin 30.5 pg (25-34); Mean Corpuscular Volume 90.6 fL (80-100); Mean Platelet Volume 11.8 fL (7.4-10.4); Monocytes # (auto) 0.42 K/uL (0.11-0.59); Monocytes % (auto) 5.3 %; Neutrophils # (auto) 6.39 K/uL (1.4-6.5); Neutrophils % (auto) 80.8 %; Platelet Count 153 K/uL (130-400); RDW Standard Deviation 52.9 fL (36.4-46.3); Red Blood Count 4.46 M/uL (4.7-6.1); White Blood Count 7.91 K/uL (4.8-10.8)
[2021-10-04 06:55] LABS: Mean Corpuscular Hgb Conc 33.7 g/dL (32-36)
[2021-10-04] MEDS: ROSUVASTATIN CALCIUM 10 MG TAB PO SCH (07:05)
[2021-10-04 07:06] LABS: Albumin Level 3.4 gm/dl (3.4-5.0); BUN Creatinine Ratio 25.3 (10-20); Bilirubin Direct 0.2 mg/dl (0-0.2); Bilirubin,Total 1.3 mg/dl (0.2-1.0); Calcium 13.9 mg/dl (8.5-10.1); Creatinine Clr Calc Pharmacy 23.5 ml/min; Est GFR (African American) 32.6 ml/min; Est GFR (Non-African American) 28.1 ml/min; Magnesium 1.8 mg/dl (1.7-2.4); Phosphorus 4.2 mg/dl (2.5-4.9); Potassium 3.1 mmol/L (3.5-5.1); Total Protein 5.8 gm/dl (6.0-8.3)
[2021-10-04] MEDS: SODIUM CHLORIDE 0.9% 1000ML 1,000 ML IV SCH ×2 (08:23→17:23)
--- NOTE | 2021-10-04 08:35 | Electrocardiogram Report ---
Test Reason : Blood Pressure : / mmHG Vent. Rate : 089 BPM Atrial Rate : 089 BPM P-R Int : 150 ms QRS Dur : 088 ms QT Int : 354 ms P-R-T Axes : 030 -46 -39 degrees QTc Int : 430 ms Normal sinus rhythm Left axis deviation Low voltage QRS Inferior infarct , age undetermined Cannot rule out Anterior infarct , age undetermined Abnormal ECG No previous ECGs available Confirmed by Shaka Karimi ([id number]) on 10/04/2021 8:35:09 AM Referred By: REFERRED SELF Confirmed By:Shaka Karimi
[2021-10-04] MEDS: LIDOCAINE 5% 1 PATCH TD SCH (09:09)
[2021-10-04] MEDS: POTASSIUM CHLORIDE / WTR 10 MEQ/100 ML PLCT IV SCH ×4 (09:47→12:40)
--- NOTE | 2021-10-04 13:09 | Electrocardiogram Report ---
Test Reason : Blood Pressure : / mmHG Vent. Rate : 109 BPM Atrial Rate : 109 BPM P-R Int : 138 ms QRS Dur : 088 ms QT Int : 356 ms P-R-T Axes : 036 -82 -26 degrees QTc Int : 479 ms Poor data quality, interpretation may be adversely affected Sinus tachycardia Left axis deviation Low voltage QRS Inferior infarct (cited on or before 03-OCT-2021) Cannot rule out Anterior infarct (cited on or before 03-OCT-2021) Abnormal ECG When compared with ECG of 03-OCT-2021 07:24, Questionable change in initial forces of Anterior leads ST now depressed in Anterior leads Confirmed by Shaka Karimi ([id number]) on 10/04/2021 1:09:01 PM Referred By: REFERRED SELF Confirmed By:Shaka Karimi
--- NOTE | 2021-10-04 14:45 | Hospitalist Progress Note ---
Date of Service October 04, 2021 Assessment & Plan (1) Hypercalcemia: Plan: Severe hypercalcemia likely secondary to metastatic disease complicated by hypovolemia associated with encephalopathy/confusion/weakness/loss of appetite - Ionized calcium pending - which should guide overall therapy- iCA-2.01 - Calcitonin 4units/kg SQ q12 x2 given. This will serve as a bridge until bisphosphonate effect takes place - ZDA or equivalent bisphosphonate- Renal dosed ZDA 3mg - IVF at 125 ml/hour- HCO3 31- continue with 0.9% Saline infusion - consider changing to Plasmalyte if acidosis/worsening renal function - Phos level now- 5.0 follow likely related to suppression of PTH from other source - ALkPO4 elevated with bony mets noted - PTH/PTH RP - As this is acute expect PTH to not be elevated- but await PTHRP - Would like to obtain further imaging with Contrast to evaluate for any new masses- however GRIEVANCE MANAGER elevated at this time (2) Encephalopathy: Plan: Currently likely related to severe hypercalcemia - CT of the head- 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 - 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- remains compared to PET scan 2020 - Treat Hypercalcemia- Hematology consulted for underlying cancer management and prognostication - Answers words with one word answers, but is able to move all extremities, and reflexes slow but present, no facial droop PERRLA -check brain MRI without contrast (due to RADHA) (3) RADHA (acute kidney injury): Plan: FREDERICK III baseline 1.2-1.5- GRIEVANCE MANAGER 2.4 with BUN 49- CRCL <30 - replace intravascular volume as above - Hold ARB - avoid further nephrotoxins as able - however further contrasted studies may benefit disease extension/new masses - If renal function does not improve with hydration consider renal ultrasound (4) Elevated troponin: Plan: elevated at 65/69, no chest pain but is difficult to obtain history ECG with TWIs anterior leads changed from previous trend troponin likely myocardial demand ischemia in setting of acute illness but if troponin increases further would obtain ECHO (5) 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 - PSA and urine cytology requested -consult Oncology to see if needs any treatment inpatient given aggressive progressing disease (6) Leukocytosis: Plan: WBC 15 neutrophil predominant- without fevers, UA without bacteria, CXR clear TBili and AST, alk phos elevated but no abd pain-check RUQ US - PCT -.21 - Hold on abx a this time likely component of some hemoconcentration (7) Elevated LFTs: Plan: TBili up to 2.6, AST elevated in the 70s, Alk phos elevated likely due to bony mets Liver and GB appear normal on CT abd/pel without contrast no abd pain or tenderness on exam but is confused and difficult to get good history -check RUQ US -follow LFTs (8) Hypokalemia: Plan: mildly low will not replace given RADHA (9) HTN (hypertension): Plan: Hold ARB (10) HLD (hyperlipidemia): Plan: Continue statin Plan: DVT porph-heparin SQ DIspo-admit to PCU DNR/DNI Admission and Anticipated Discharge Date Admission Date: October 03, 2021 Subjective Patient is lethargic. Review of Systems Review of Systems: All systems reviewed & are unremarkable except as noted in HPI & below Physical Exam Physical Exam: General: awakens to voice, but drifts back to sleep, one word answers yes or no Head: Normocephalic, atraumatic ENT: PERRLA, right eye crusted shut, cleansed and opened with moist gauze- no injectate or tearing. does not follow finger wih eyes, mucous membranes are dry Neuro: AAO x 3, speech clear and appropriate, strength intact bilaterally 5/5, sensation intact and equal all extremities and dermatomes, no pronator drift Chest: equal rise and fall of the chest, no accessory muscle use, no heaves or thrills, Clear to auscultation, on room air, Cardiac: Regular rate and rhythm, telemetry reviewed, skin warm dry, cap refill <3 seconds, peripheral pulses +2 no JVD, no murmur, no edema GI: (+) loss of appetite, NABS x 4 quadrants, soft, nontender to palpation, no rebound, guarding or tenderness : Incontinent, will place Dye Extremities: Normal inspection, no peripheral edema or erythema, calfs nontender to palpation Skin: no rash or erythema Results & Data Results & Data ([facility]) Vital Signs (Past 12 Hours) Vital Signs Temp Pulse Resp BP BP Pulse Ox 10/04/21 11:47 36.9 C 115 H 20 167/71 H 94 10/04/21 07:45 37.3 C 83 22 137/80 93 10/04/21 03:52 36.6 C 91 H 20 139/87 97 PG Care Time/CCT Total # of Minutes Spent Total Time Spent with Patient: Total time spent is greater than 50% in coordination of care (as documented) at patient's floor/unit and/or counseling patient: Coding Level of Care Code 59810 Subseq Hosp Care Lvl 2 Diagnoses Hypercalcemia E83.52 Encephalopathy G93.40 RADHA (acute kidney injury) N17.9 Elevated troponin R77.8 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
[2021-10-05] MEDS: SODIUM CHLORIDE 0.9% 1000ML 1,000 ML IV SCH ×2 (02:15→10:47)
[2021-10-05 07:41] LABS: Hematocrit (blood only) 34.5 % (42-52); Hemoglobin 11.5 g/dL (14.0-18.0); Mean Corpuscular Hemoglobin 30.3 pg (25-34); Mean Corpuscular Hgb Conc 33.3 g/dL (32-36); Mean Corpuscular Volume 90.8 fL (80-100); Mean Platelet Volume 11.5 fL (7.4-10.4); Platelet Count 103 K/uL (130-400); RDW Coefficient of Variation 16.5 % (11.5-14.5); RDW Standard Deviation 54.5 fL (36.4-46.3); White Blood Count 6.75 K/uL (4.8-10.8)
[2021-10-05 08:06] LABS: ALC (manual) 1.11 K/uL (1.2-3.4); ANC (manual) 5.46 K/uL (1.4-6.5); Lymphocytes # (manual) 1.11 K/uL (1.2-3.4); Lymphocytes % (manual) 16.5 %; Monocytes # (manual) 0.11 K/uL (0.11-0.59); Monocytes % (manual) 1.7 %; Myelocytes # (manual) 0.06 K/uL (0-0); Myelocytes % (manual) 0.9 %; Neutrophils # (manual) 5.46 K/uL (1.4-6.5); Neutrophils % (manual) 80.9 %
[2021-10-05 08:10] LABS: BUN Creatinine Ratio 28.4 (10-20); Calcium 12.5 mg/dl (8.5-10.1); Creatinine Clr Calc Pharmacy 25.8 ml/min; Est GFR (African American) 36.6 ml/min; Est GFR (Non-African American) 31.6 ml/min; Magnesium 1.3 mg/dl (1.7-2.4); Phosphorus 2.5 mg/dl (2.5-4.9)
[2021-10-05] MEDS ORDERED: ATROPINE SULFATE 1% OP SOLN 5 ML BTL PO PRN (08:16)
[2021-10-05] MEDS: POTASSIUM CHLORIDE / WTR 10 MEQ/100 ML PLCT IV SCH ×6 (08:49→19:51)
[2021-10-05] MEDS: LIDOCAINE 5% 1 PATCH TD SCH (08:50)
[2021-10-05] MEDS: ROSUVASTATIN CALCIUM 10 MG TAB PO SCH (08:51)
[2021-10-05] MEDS: MAGNESIUM SULFATE / D5W 1 GM/100 ML BAG IV SCH ×2 (09:27→11:09)
--- NOTE | 2021-10-05 17:05 | Hospitalist Progress Note ---
Date of Service October 05, 2021 Assessment & Plan (1) Acute respiratory failure with hypoxia: Plan: PATIENT FOUND TO BE IN ACUTE RESPIRATORY FAILURE. Patient inisitally required high flow oxygen, this was titrated to 5 liters oxymask. Obtained VBG, and chest x ray which showed patchy infiltraytes. IVF were stopped and lasix was given. His daughter was at bedside and updated. Patient continued to be in SOB ussing accesory muscles to breath. Had extensive discussion with family, reports he would not want to escalate care. His cancer is advanced, and his outpatient care team stated that he likely has weeks to live. His at the moment is choosing jarrod to be placed on comfort measures. (2) Hypercalcemia: Plan: Severe hypercalcemia likely secondary to metastatic disease complicated by hypo volemia associated with encephalopathy/confusion/weakness/loss of appetite - Calcitonin 4units/kg SQ q12 x2 given. This will serve as a bridge until bisphosphonate effect takes place - ZDA or equivalent bisphosphonate- Renal dosed ZDA 3mg - IVF at 125 ml/hour- HCO3 31- continue with 0.9% Saline infusion - consider changing to Plasmalyte if acidosis/worsening renal function - Phos level now- 5.0 follow likely related to suppression of PTH from other source - ALkPO4 elevated with bony mets noted - PTH/PTH RP - As this is acute expect PTH to not be elevated- but await PTHRP - Would like to obtain further imaging with Contrast to evaluate for any new masses- however FRET SAW OPERATOR elevated at this time (3) Encephalopathy: Plan: Metabolic encephalopathy Currently likely related to severe hypercalcemia - CT of the head- 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 - 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- remains compared to PET scan 2020 - Treat Hypercalcemia- Hematology consulted for underlying cancer management and prognostication - Answers words with one word answers, but is able to move all extremities, and reflexes slow but present, no facial droop PERRLA -check brain MRI without contrast (due to RADHA) (4) RADHA (acute kidney injury): Plan: FREDERICK III baseline 1.2-1.5- FRET SAW OPERATOR 2.4 with BUN 49- CRCL <30 - replace intravascular volume as above - Hold ARB - avoid further nephrotoxins as able - however further contrasted studies may benefit disease extension/new masses - If renal function does not improve with hydration consider renal ultrasound (5) Elevated troponin: Plan: elevated at 65/69, no chest pain but is difficult to obtain history ECG with TWIs anterior leads changed from previous trend troponin likely myocardial demand ischemia in setting of acute illness but if troponin increases further would obtain ECHO (6) 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 - PSA and urine cytology requested -consult Oncology to see if needs any treatment inpatient given aggressive progressing disease (7) Leukocytosis: Plan: WBC 15 neutrophil predominant- without fevers, UA without bacteria, CXR clear TBili and AST, alk phos elevated but no abd pain-check RUQ US - PCT -.21 - Hold on abx a this time likely component of some hemoconcentration (8) Elevated LFTs: Plan: TBili up to 2.6, AST elevated in the 70s, Alk phos elevated likely due to bony mets Liver and GB appear normal on CT abd/pel without contrast no abd pain or tenderness on exam but is confused and difficult to get good history -check RUQ US -follow LFTs (9) Hypokalemia: Plan: mildly low will not replace given RADHA (10) HTN (hypertension): Plan: Hold ARB (11) HLD (hyperlipidemia): Plan: Continue statin Plan: DVT porph-heparin SQ DIspo-admit to PCU DNR/DNI Admission and Anticipated Discharge Date Admission Date: October 03, 2021 Subjective Patient was seen multiple times throughout the day. Patient was having sob IN THEMORNING AND HE WAS SUCTIONED. He improved, however, in the afternoon, he again became SOB. Nolberto morrissey was called. Review of Systems Review of Systems: All systems reviewed & are unremarkable except as noted in HPI & below Physical Exam Physical Exam: General: Appears to be SOB Head: Normocephalic, atraumatic ENT: PERRLA, right eye crusted shut, cleansed and opened with moist gauze- no injectate or tearing. does not follow finger wih eyes, mucous membranes are dry Neuro: AAO x 3, speech clear and appropriate, strength intact bilaterally 5/5, sensation intact and equal all extremities and dermatomes, no pronator drift Chest: equal rise and fall of the chest, using accessory muscles to breath, rhonchi bilaterally. Cardiac: Regular rate and rhythm, telemetry reviewed, skin warm dry, cap refill <3 seconds, peripheral pulses +2 no JVD, no murmur, no edema GI: (+) loss of appetite, NABS x 4 quadrants, soft, nontender to palpation, no rebound, guarding or tenderness : Incontinent, will place Dye Extremities: Normal inspection, no peripheral edema or erythema, calfs nontender to palpation Skin: no rash or erythema Results & Data Results & Data ([facility]) Vital Signs (Past 12 Hours) Vital Signs Temp Pulse Pulse Resp BP Pulse Ox 10/05/21 15:12 36.7 C 102 H 24 162/74 H 95 10/05/21 14:50 102 H 10/05/21 11:06 36.5 C 95 H 22 138/86 95 10/05/21 08:36 36.7 C 20 138/72 10/05/21 08:14 97 H PG Care Time/CCT Total # of Minutes Spent Total Time Spent with Patient: Total time spent is greater than 50% in coordination of care (as documented) at patient's floor/unit and/or counseling patient: Prolonged Care Time Prolonged Care Time: Yes Total Prolonged Care Time: 100 9:00 to 9:20 17:30 to 18:50 Coding Level of Care Code 27967 Subseq Hosp Care Lvl 3 (25 - SIGNIFICANT, SEPARATELY IDENTIFIABLE ) Diagnoses Hypercalcemia E83.52 Encephalopathy G93.40 RADHA (acute kidney injury) N17.9 Elevated troponin R77.8 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
[2021-10-05] MEDS ORDERED: MoRPHine SULFATE 5 MG/0.25 ML UDP PO PRN ×2 (17:57→18:55)
[2021-10-05] MEDS ORDERED: FUROSEMIDE 40 MG/4 ML VIAL IV ONE (18:01)
--- NOTE | 2021-10-05 18:08 | XRay Report ---
XR chest 1V portable CLINICAL HISTORY: hypoxia. COMPARISON STUDY: 10/03/2021 TECHNIQUE: 1 view of the chest FINDINGS: Single frontal view of the chest demonstrates the cardiomediastinal silhouette to be within normal li mits. Compared to previous examination, there has been interval development of patchy alveolar opacit ies within the left upper lobe and within the right lower lobe. There is also left basilar atelectasi s There is no evidence for pleural effusion. There is no evidence for vascular congestion. Bony metas tases are again seen. IMPRESSION: 1. Compared to the previous study, patchy alveolar opacities are now seen within the left upper lobe and right lower lobe along with left basilar atelectasis. The findings are suspicious for multifocal pneumonia. ACT 112: Negative or not required by law. Electronically signed by: Neeraj Hunter M.D. 10/05/2021 6:06 PM
[2021-10-05] MEDS ORDERED: FUROSEMIDE INJ 20 MG/2 ML VIAL IV ONE (18:12)
[2021-10-05 18:28] LABS: Base Excess VBG -3.4 mEq/L; Oxygen Saturation VBG 92.9 %; pH VBG 7.36 (7.36-7.41)
[2021-10-05] MEDS ORDERED: MAGNESIUM SULFATE / D5W 1 GM/100 ML BAG IV ONE (18:45)
[2021-10-05] MEDS ORDERED: ONDANSETRON INJ 2 MG/ML 2 ML VIAL IV PRN (18:55)
[2021-10-05] MEDS ORDERED: LORazepam 0.5 MG TAB PO PRN (18:55)
[2021-10-05] MEDS ORDERED: ONDANSETRON 4 MG OD TAB SL PRN (18:55)
[2021-10-05] MEDS: LORazepam 2 MG/1 ML VIAL IV PRN (20:06)
[2021-10-05] MEDS: HYDROmorphone INJ 0.5 MG/0.5 ML SYR IV PRN (20:06)
[2021-10-06] MEDS: LORazepam 2 MG/1 ML VIAL IV PRN ×2 (01:44→06:20)
[2021-10-06 06:30] LABS: Hematocrit (blood only) 34.3 % (42-52); Hemoglobin 11.1 g/dL (14.0-18.0); Mean Corpuscular Hemoglobin 29.4 pg (25-34); Mean Corpuscular Hgb Conc 32.4 g/dL (32-36); Mean Platelet Volume 10.9 fL (7.4-10.4); Platelet Count 102 K/uL (130-400); RDW Coefficient of Variation 16.8 % (11.5-14.5); RDW Standard Deviation 55.7 fL (36.4-46.3); Red Blood Count 3.77 M/uL (4.7-6.1)
[2021-10-06] MEDS ORDERED: HYDROmorphone INJ 0.5 MG/0.5 ML SYR IV STA (06:30)
[2021-10-06 06:36] LABS: BUN Creatinine Ratio 30.1 (10-20); Calcium 11.7 mg/dl (8.5-10.1); Creatinine Clr Calc Pharmacy 24.7 ml/min; Est GFR (African American) 34.7 ml/min; Magnesium 2.2 mg/dl (1.7-2.4); Phosphorus 2.3 mg/dl (2.5-4.9); Potassium 3.1 mmol/L (3.5-5.1)
[2021-10-06 06:48] LABS: ALC (manual) 0.92 K/uL (1.2-3.4); ANC (manual) 6.31 K/uL (1.4-6.5); Lymphocytes # (manual) 0.92 K/uL (1.2-3.4); Lymphocytes % (manual) 12.3 %; Monocytes # (manual) 0.14 K/uL (0.11-0.59); Monocytes % (manual) 1.8 %; Myelocytes # (manual) 0.14 K/uL (0-0); Myelocytes % (manual) 1.8 %; Neutrophils # (manual) 6.31 K/uL (1.4-6.5); Neutrophils % (manual) 84.1 %; RBC Morphology Unremarkable
[2021-10-06] MEDS: LIDOCAINE 5% 1 PATCH TD SCH (09:23)
[2021-10-06] MEDS: MoRPHine SULFATE 5 MG/0.25 ML UDP PO PRN ×3 (09:24→15:58)
[2021-10-06] MEDS: ROSUVASTATIN CALCIUM 10 MG TAB PO SCH (09:24)
[2021-10-06] MEDS: HYDROmorphone INJ 0.5 MG/0.5 ML SYR IV PRN (17:14)
[2021-10-06] MEDS: ATROPINE SULFATE 1% OP SOLN 5 ML BTL SL PRN (17:51)
--- NOTE | 2021-10-06 19:01 | Electrocardiogram Report ---
Test Reason : Blood Pressure : / mmHG Vent. Rate : 113 BPM Atrial Rate : 113 BPM P-R Int : 142 ms QRS Dur : 088 ms QT Int : 348 ms P-R-T Axes : 044 -49 -31 degrees QTc Int : 478 ms Poor data quality, interpretation may be adversely affected Probable Sinus tachycardia Left axis deviation Inferior infarct (cited on or before 03-OCT-2021) Abnormal ECG When compared with ECG of 03-OCT-2021 07:24, T wave inversion less evident in Anterior leads Confirmed by Sushil Colunga ([id number]) on 10/06/2021 7:00:57 PM Referred By: REFERRED SELF Confirmed By:Sushil Colunga
--- NOTE | 2021-10-06 20:35 | Hospitalist Progress Note ---
Date of Service October 06, 2021 Assessment & Plan (1) Comfort measures only status: Plan: Given kidney numbers have improved will place on roxanol. Patient appears comfortable. Informed nurse case manager. Updated . (2) Acute respiratory failure with hypoxia: Plan: On 10/05/21 PATIENT FOUND TO BE IN ACUTE RESPIRATORY FAILURE. Patient initially required high flow oxygen, this was titrated to 5 liters oxym ask. Obtained VBG, and chest x ray which showed patchy infiltraytes. IVF were stopped and lasix was given. His daughter was at bedside and updated. Patient continued to be in SOB ussing accesory muscles to breath. Had extensive discussion with family, reports he would not want to escalate care. His cancer is advanced, and his outpatient care team stated that he likely has weeks to live. His at the moment is choosing jarrod to be placed on comfort measures. (3) Hypercalcemia: Plan: Severe hypercalcemia likely secondary to metastatic disease complicated by hypovolemia associated with encephalopathy/confusion/weakness/loss of appetite - Calcitonin 4units/kg SQ q12 x2 given. This will serve as a bridge until bisphosphonate effect takes place - ZDA or equivalent bisphosphonate- Renal dosed ZDA 3mg - IVF at 125 ml/hour- HCO3 31- continue with 0.9% Saline infusion - consider changing to Plasmalyte if acidosis/worsening renal function - Phos level now- 5.0 follow likely related to suppression of PTH from other source - ALkPO4 elevated with bony mets noted - PTH/PTH RP - As this is acute expect PTH to not be elevated- but await PTHRP - Would like to obtain further imaging with Contrast to evaluate for any new masses- however CORPORATE ANALYST elevated at this time (4) Encephalopathy: Plan: Metabolic encephalopathy Currently likely related to severe hypercalcemia - CT of the head- 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 - 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- remains compared to PET scan 2020 - Treat Hypercalcemia- Hematology consulted for underlying cancer management and prognostication - Answers words with one word answers, but is able to move all extremities, and reflexes slow but present, no facial droop PERRLA -check brain MRI without contrast (due to RADHA) (5) RADHA (acute kidney injury): Plan: FREDERICK III baseline 1.2-1.5- CORPORATE ANALYST 2.4 with BUN 49- CRCL <30 - replace intravascular volume as above - Hold ARB - avoid further nephrotoxins as able - however further contrasted studies may benefit disease extension/new masses - If renal function does not improve with hydration consider renal ultrasound (6) Elevated troponin: Plan: elevated at 65/69, no chest pain but is difficult to obtain history ECG with TWIs anterior leads changed from previous trend troponin likely myocardial demand ischemia in setting of acute illness but if troponin increases further would obtain ECHO (7) 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 - PSA and urine cytology requested -consult Oncology to see if needs any treatment inpatient given aggressive progressing disease (8) Leukocytosis: Plan: WBC 15 neutrophil predominant- without fevers, UA without bacteria, CXR clear TBili and AST, alk phos elevated but no abd pain-check RUQ US - PCT -.21 - Hold on abx a this time likely component of some hemoconcentration (9) Elevated LFTs: Plan: TBili up to 2.6, AST elevated in the 70s, Alk phos elevated likely due to bony mets Liver and GB appear normal on CT abd/pel without contrast no abd pain or tenderness on exam but is confused and difficult to get good history -check RUQ US -follow LFTs (10) Hypokalemia: Plan: mildly low will not replace given RADHA (11) HTN (hypertension): Plan: Hold ARB (12) HLD (hyperlipidemia): Plan: Continue statin Plan: DVT porph-heparin SQ DIspo-admit to PCU DNR/DNI Admission and Anticipated Discharge Date Admission Date: October 03, 2021 Subjective 76 yo male is resting comfortably. Review of Systems Review of Systems: All systems reviewed & are unremarkable except as noted in HPI & below Physical Exam Physical Exam: General: Appears to be SOB Head: Normocephalic, atraumatic ENT: PERRLA, right eye crusted shut, cleansed and opened with moist gauze- no injectate or tearing. does not follow finger wih eyes, mucous membranes are dry Neuro: AAO x 3, speech clear and appropriate, strength intact bilaterally 5/5, sensation intact and equal all extremities and dermatomes, no pronator drift Chest: equal rise and fall of the chest, using accessory muscles to breath, rhonchi bilaterally. Cardiac: Regular rate and rhythm, telemetry reviewed, skin warm dry, cap refill <3 seconds, peripheral pulses +2 no JVD, no murmur, no edema GI: (+) loss of appetite, NABS x 4 quadrants, soft, nontender to palpation, no rebound, guarding or tenderness : Incontinent, will place Dye Extremities: Normal inspection, no peripheral edema or erythema, calfs nontender to palpation Skin: no rash or erythema Results & Data Results & Data ([facility]) Vital Signs (Past 12 Hours) Vital Signs Resp 10/06/21 08:45 24 PG Care Time/CCT Total # of Minutes Spent Total Time Spent with Patient: Total time spent is greater than 50% in coordination of care (as documented) at patient's floor/unit and/or counseling patient: Coding Level of Care Code 27609 Subseq Hosp Care Lvl 2 Diagnoses Acute respiratory failure with hypoxia J96.01 Hypercalcemia E83.52 Encephalopathy G93.40 RADHA (acute kidney injury) N17.9 Elevated troponin R77.8 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
[2021-10-07] MEDS: MoRPHine SULFATE 5 MG/0.25 ML UDP PO PRN ×4 (01:12→08:01)
[2021-10-07] MEDS: LORazepam 2 MG/1 ML VIAL IV PRN ×2 (02:14→08:21)
[2021-10-07] MEDS: HYDROmorphone INJ 0.5 MG/0.5 ML SYR IV PRN ×2 (02:55→10:35)
[2021-10-07] MEDS: ATROPINE SULFATE 1% OP SOLN 5 ML BTL SL PRN ×3 (02:59→10:37)
--- NOTE | 2021-10-07 06:07 | Electrocardiogram Report ---
Test Reason : Blood Pressure : / mmHG Vent. Rate : 101 BPM Atrial Rate : 102 BPM P-R Int : 142 ms QRS Dur : 080 ms QT Int : 352 ms P-R-T Axes : 045 -48 -54 degrees QTc Int : 456 ms Sinus tachycardia Left axis deviation Inferior infarct (cited on or before 03-OCT-2021) Poor R wave progression, consider anterior FL vs. lead placement vs. LVH T wave abnormality, consider anterior ischemia Abnormal ECG When compared with ECG of 04-OCT-2021 06:33, No significant change Confirmed by Sushil Colunga ([id number]) on 10/07/2021 6:06:37 AM Referred By: REFERRED SELF Confirmed By:Sushil Colunga
--- NOTE | 2021-10-08 19:31 | Discharge Summary ---
Date of Service October 07, 2021 Admission HPI Per Admitting Provider 76 YOM with medical history of: Prostate Cancer (follows with cancer [facility])- on current therapy, CKD, HTN, HLD, back pain with bony metastatic disease. Patient comes to the EMD today for 2 day history of increased weakness, confusion, and decrease in oral intake. Patient is accompanied by his and daughter. They report normally he is pretty well functioning at home, but has had decrease over the past 2 weeks in his overall function and ability to get around even with his cane. reports that he is confused and had little to eat over the past few days, and since he was lying down he has not be en drinking. She endorses that he will usually drink 1-2 large cups of water through the day while he is sitting in his chair. In the EMD the patient had routine labs performed to include HScTNI and UA. He had CT scan of his abdomen and pelvis performed without contrast, cervical spine CT and head CT without contrast. CXR performed and ECG. 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 His HScTNI was also elevated with ECG without ST elevation or acute changes. Patient will be admitted to PCU telemetry- will send iCA/PHOS level now. Will require IV hydration aggressive and will treat his hypercalcemia with resulting labs, which will include Calcitonin and ZDA/Bisphosphonate that will need to be renally adjusted. COVID/FLU/RSV/: NEGATIVE on admission Principal Diagnosis metastatic prostate cancer Discharge Exam please refer to summary Discharge Data Allergies Allergy/AdvReac Type Severity Reaction Status Date / Time No Known Allergies Allergy Verified 10/03/21 11:45 Consultations 10/03/21 10:53 ED Decision to Admit Stat Ordered Studies 10/03/21 07:36 CT cervical spine wo con Stat CT head/brain wo con Stat 10/03/21 09:10 CT abd pelvis wo con Stat 10/03/21 12:43 MR brain wo con Routine 10/03/21 15:47 US gallbladder Stat US renal/blad retro comp Urgent Hospital Course (1) Comfort measures only status: Given kidney numbers have improved will place on roxanol. Patient appears comfortable. Informed block and case maker. Updated . On 10/07/21, patient . Family was informed. Please refer to summary (2) Acute respiratory failure with hypoxia: On 10/05/21 PATIENT FOUND TO BE IN ACUTE RESPIRATORY FAILURE. Patient initially required high flow oxygen, this was titrated to 5 liters oxymask. Obtained VBG, and chest x ray which showed patchy infiltraytes. IVF were stopped and lasix was given. His daughter was at bedside and updated. Patient continued to be in SOB ussing accesory muscles to breath. Had extensive discussion with family, reports he would not want to escalate care. His cancer is advanced, and his outpatient care team stated that he likely has weeks to live. His at the moment is choosing jarrod to be placed on comfort measures. (3) Hypercalcemia: Severe hypercalcemia likely secondary to metastatic disease complicated by hypovolemia associated with encephalopathy/confusion/weakness/loss of appetite - Calcitonin 4units/kg SQ q12 x2 given. 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 elevated at this time (4) Encephalopathy: Metabolic encephalopathy Currently likely related to severe hypercalcemia - CT of the head- 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 - 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- remains compared to PET scan 2020 - Treat Hypercalcemia- Hematology consulted for underlying cancer management and prognostication - Answers words with one word answers, but is able to move all extremities, and reflexes slow but present, no facial droop PERRLA -check brain MRI without contrast (due to RADHA) (5) RADHA (acute kidney injury): FREDERICK III baseline 1.2-1.5- 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 2.4 with BUN 49- CRCL <30 - replace intravascular volume as above - Hold ARB - avoid further nephrotoxins as able - however further contrasted studies may benefit disease extension/new masses - If renal function does not improve with hydration consider renal ultrasound (6) Elevated troponin: elevated at 65/69, no chest pain but is difficult to obtain history ECG with TWIs anterior leads changed from previous trend troponin likely myocardial demand ischemia in setting of acute illness but if troponin increases further would obtain ECHO (7) Malignant neoplasm involving prostate by 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 - PSA and urine cytology requested -consult Oncology to see if needs any treatment inpatient given aggressive progressing disease (8) Leukocytosis: WBC 15 neutrophil predominant- without fevers, UA without bacteria, CXR clear TBili and AST, alk phos elevated but no abd pain-check RUQ US - PCT -.21 - Hold on abx a this time likely component of some hemoconcentration (9) Elevated LFTs: TBili up to 2.6, AST elevated in the 70s, Alk phos elevated likely due to bony mets Liver and GB appear normal on CT abd/pel without contrast no abd pain or tenderness on exam but is confused and difficult to get good history -check RUQ US -follow LFTs (10) Hypokalemia: mildly low will not replace given RADHA (11) HTN (hypertension): Hold ARB (12) HLD (hyperlipidemia): Continue statin DVT porph-heparin SQ DIspo-admit to PCU DNR/DNI Total Time Total Time Spent Total Time Spent (In Minutes): 35 Discharge Plan Discharge Items Patient Disposition: Other Date/Time: 10/07/21 14:05 Coding Level of Care Code None Diagnoses Comfort measures only status Z51.5 Acute respiratory failure with hypoxia J96.01 Hypercalcemia E83.52 Encephalopathy G93.40 RADHA (acute kidney injury) N17.9 Elevated troponin R77.8 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
--- NOTE | 2021-10-09 07:45 | Hospitalist Consultation ---
Date of Consultation October 08, 2021 History of Present Illness Attending Physician: Moshe Shi Allergies Allergy/AdvReac Type Severity Reaction Status Date / Time No Known Allergies Allergy Verified 10/03/21 11:45 Home Medications Medication Instructions Recorded Confirmed Type calcium carbonate 500 mg calcium 500 mg PO QAM 04/17/18 10/03/21 History (1,250 mg) tablet (Calcium 500) abiraterone 250 mg tablet 250 mg PO TID 10/03/21 10/03/21 History ondansetron HCl 8 mg tablet 8 mg PO Q8H PRN 10/03/21 10/03/21 History prednisone 10 mg tablet 10 mg PO DAILY 10/03/21 10/03/21 History rosuvastatin 10 mg tablet 10 mg PO DAILY 10/03/21 10/03/21 History tramadol 50 mg tablet 50 mg PO Q4H PRN 10/03/21 10/03/21 History valsartan 80 mg tablet 80 mg PO DAILY 10/03/21 10/03/21 History Patient History Medical History (Updated 10/06/21 @ 21:09 by Moshe Shi) RADHA (acute kidney injury) 04/2018- FELT 2/2 OBSTRUCTIVE UROPATHY; IMPROVING S/P MURPHY INSERTION CREATININE WAS 1.98 ON 04/04/18 AT TIME OF [facility] DISCHARGE-- IMPROVED TO 1.5 ON 04/18/18 PAT PREOP LABS Anemia BPH (benign prostatic hyperplasia) Diverticular disease Prostate cancer SUGGESTIVE OF METS PER CT ABD/PELVIS PER 04/2018 DISCHARGE SUMMARY- PATIENT DENIES HISTORY OF PROSTATE CANCER Surgical History History of colonoscopy History of surgery on arm RIGHT UE, MULTIPLE 2/2 TRAUMA Spermatocele S/P SURGICAL REPAIR Family History Mother , age 92 Congestive heart failure Father , age 68 Myocardial infarction Social History Smoking Status: Unknown if ever smoked Cigarettes Per Day: QUIT 2+ MONTHS AGO, HX <1/4 PPD X 30 YEARS; Second Hand Exposure: No; Hx Alcohol Use: Yes Alcohol type: other Hx Substance Use: No Preferred Language: Thai Communication Ability: Impaired Visual Impairment: No Limitations Fence Supervisor Required: No Beliefs That Will Affect Care: None marital status: Current Living Situation: Spouse Current Living Situation Comment: lives in [place] current occupational status: retired 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
--- NOTE | 2021-10-12 14:36 | Death Pronouncement Note ---
Date of Service October 07, 2021 Pronouncement Note Admission Date October 03, 2021 Date and Time of Date of : 10/07/21 Time of : 14:15 Preliminary Cause of (1) Comfort measures only status: Additional Comments: Please refer to discharge summary. 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: (8) Leukocytosis: (9) Elevated LFTs: (10) Hypokalemia: (11) HTN (hypertension): (12) HLD (hyperlipidemia): Additional Data Confirmation of : no pulse, no respirations, no heart sounds and pupils fixed and dilated Pronouncement Performed By: Attending Physician Family: contacted Attending/PCP notified?: Yes Attending physician: Moshe Shi Was code activated?: No Autopsy requested?: No Coding Level of Care Code D/C DAY MANAGEMENT >30 MINS Diagnoses Comfort measures only status Z51.5 Acute respiratory failure with hypoxia J96.01 Hypercalcemia E83.52 Encephalopathy G93.40 RADHA (acute kidney injury) N17.9 Elevated troponin R77.8 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
== END 2021-10-07 17:25 | disposition expired | DRG 640 ==
LOC: ED 07:16 → SUATTDRO 11:47 → 2S 11:47 → 3E 10-05 21:35